=== PATIENT | male | born 1970 | race Caucasian/White ===

== ENCOUNTER → 2016-11-04 | Outpatient (CLI) | payer BC ==
--- NOTE | 2016-11-04 15:46 | REP ---
Cervical spine series: Eight views. History: Neck pain radiating to the right shoulder. No comparison studies. Findings: Lateral views done in flexion, extension and neutral position demonstrate limitation of flexion/extension range of motion. No subluxation or instability is seen. There is reversal of the normal cervical lordosis. There are degenerative disc changes noted anteriorly at the narrowed C5-6 disc level. Prevertebral soft tissues are not widened. Disc spaces are otherwise preserved. Vertebral body heights are preserved. No malalignment is seen. Oblique images demonstrate intact neural foramina bilaterally at each cervical level and normally aligned facets. AP and open mouth odontoid views show no additional abnormality. Impression: Reversal of the normal cervical lordosis. Degenerative disc changes at C5-6. Signed by Eusebio Dorado MD 11/04/2016 05:00 P
== END ==
LOC: M WUC 14:49
PROVIDERS: ATTEND Nurse Practitioner Family
DX: M50.90 Cervical disc disorder, unspecified, unspecified cervical region (principal)

== ENCOUNTER → 2019-09-11 | Outpatient (CLI) | payer BC ==
[2019-09-11 17:58] LABS: ALBUMIN 3.8 GM/DL (3.2-5.2); ALT/SGPT 118 U/L (12-78); BILIRUBIN,TOTAL 0.7 MG/DL (0.2-1.0); BLOOD UREA NITROGEN 7 MG/DL (7-18); CALCIUM LEVEL 9.5 MG/DL (8.5-10.1); CARBON DIOXIDE LEVEL 27 MEQ/L (21-32); CHLORIDE LEVEL 101 MEQ/L (98-107); CHOLESTEROL LEVEL 223 MG/DL (<200); CHOLESTEROL RISK RATIO 4.744 (<5); CREATININE FOR GFR 0.88 MG/DL (0.70-1.30); GLOMERULAR FILTRATION RATE > 60.0 (>60); GLUCOSE, FASTING 100 MG/DL (70-100); HDL CHOLESTEROL 47 MG/DL (>40); LDL CHOLESTEROL 146 MG/DL (<100); NON-HDL-C 176 MG/DL; POTASSIUM SERUM 4.4 MEQ/L (3.5-5.1); SODIUM LEVEL 136 MEQ/L (136-145); TOTAL PROTEIN 7.5 GM/DL (6.4-8.2); TRIGLYCERIDES LEVEL 150 MG/DL (<150)
== END ==
LOC: M WUC 12:12
PROVIDERS: ATTEND Nurse Practitioner Family
DX: G25.2 Other specified forms of tremor (principal); I10 Essential (primary) hypertension

== ENCOUNTER 2021-06-04 08:50 | Emergency (ER) | payer SELFPAY ==
[~2021-06-04] VITALS: Ht 180.3 cm; Wt 98.5 kg
--- NOTE | 2021-06-04 09:13 | REP ---
INDICATION: TRAUMA. COMPARISON: None. TECHNIQUE: AP and tangential scapular Y-views of the left shoulder are obtained. FINDINGS: There is an anterior inferior glenohumeral dislocation associated with a somewhat displaced fracture of the greater tuberosity of the proximal humerus. No glenoid fracture is apparent. The clavicle appears intact. The AC joint is normally aligned. There is soft tissue swelling. No rib fracture is seen. IMPRESSION: Anterior inferior glenohumeral fracture dislocation. There is an impaction fracture displacing the greater tuberosity. No glenoid fracture is seen. <Electronically signed by Kenneth Dorado > 06/04/21 [id number]
[2021-06-04] MEDS ORDERED: MORPHINE 4 MG/ML 1ML VIAL/SYRINGE (J2270) IV ONE (09:50)
[2021-06-04] MEDS ORDERED: ONDANSETRON 4MG/2ML VIAL IV ONE (09:50)
[2021-06-04] MEDS ORDERED: NS 1,000 ML IV SCH (09:55)
[2021-06-04] MEDS: propofoL 200 MG/20 ML VIAL IV.PROC PRN ×3 (10:24→10:27)
--- NOTE | 2021-06-04 10:53 | REP ---
INDICATION: post reduction. COMPARISON: Comparison is made with the earlier pre reduction radiographs. TECHNIQUE: A single AP portably obtained view of the left shoulder. FINDINGS: The left glenohumeral joint is reduced. The greater tuberosity fracture is improved in position on this AP view. AC joint is normally aligned as well. No scapular fracture is appreciated. IMPRESSION: Postreduction view shows good alignment of the glenohumeral articulation. Improved alignment of the greater tuberosity fracture. <Electronically signed by Kenneth Dorado > 06/04/21 1040
[2021-06-04] MEDS ORDERED: HYDR-3713 PO (11:43)
[2021-06-04 11:51] VITALS: BP 153/86
== END 2021-06-04 12:15 | disposition home or self-care (01) ==
LOC: M ED 08:50
DX: S42.252A Displaced fracture of greater tuberosity of left humerus, initial encounter for closed fracture (principal); S43.005A Unspecified dislocation of left shoulder joint, initial encounter; W17.89XA Other fall from one level to another, initial encounter; Y92.018 Other place in single-family (private) house as the place of occurrence of the external cause
CPT/HCPCS: 23650; 73020; 73030; 93041; 94760; 96374; 96375; 99285; J2270; J2405

== ENCOUNTER → 2021-06-17 | Outpatient (CLI) | payer BC, SELFPAY ==
[~2021-06-17] MED LIST: HYDR-3713 PO
--- NOTE | 2021-06-17 09:02 | REP ---
INDICATION: LT SHOULDER FX. COMPARISON: 06/04/2021 TECHNIQUE: Neutral, internal rotation, external rotation, and Y-view of the left shoulder FINDINGS: Nondisplaced fracture involving the greater tuberosity again noted. No significant callus formation or periosteal reaction identified. Acromioclavicular joint and glenoid as well as the surrounding soft tissues appear normal. IMPRESSION: Known nondisplaced greater tuberosity fracture of the proximal humeral head. <Electronically signed by Chad Lennon > 06/17/21 [id number]
== END ==
LOC: M SOG 08:23
PROVIDERS: ATTEND Orthopaedic Surgery
DX: S42.252A Displaced fracture of greater tuberosity of left humerus, initial encounter for closed fracture (principal); X58.XXXA Exposure to other specified factors, initial encounter; Y92.89 Other specified places as the place of occurrence of the external cause

== ENCOUNTER → 2021-07-01 | Outpatient (CLI) | payer BC ==
--- NOTE | 2021-07-01 11:21 | REP ---
INDICATION: LT SHOULDER FX. COMPARISON: 06/17/2021. TECHNIQUE: Four views left shoulder. FINDINGS: Nondisplaced fracture of the greater tuberosity of the proximal left humerus is again noted unchanged. IMPRESSION: Stable fracture greater tuberosity proximal left humerus. <Electronically signed by Kirk Hunter > 07/01/21 1110
== END ==
LOC: M SOG 08:25
PROVIDERS: ATTEND Orthopaedic Surgery
DX: S42.252 Displaced fracture of greater tuberosity of left humerus (principal); Y92.9 Unspecified place or not applicable; Y93.9 Activity, unspecified

== ENCOUNTER → 2021-07-16 | Outpatient (CLI) | payer BC ==
--- NOTE | 2021-07-16 09:18 | REP ---
INDICATION: LT HUMERUS FX. COMPARISON: 07/01/2021 TECHNIQUE: Two views FINDINGS: The previously described proximal humeral fracture is unchanged. The glenohumeral relationship is again seen to be maintained. IMPRESSION: No significant change <Electronically signed by Marcos Sanon > 07/16/21 0914
== END ==
LOC: M SOG 08:30
PROVIDERS: ATTEND Orthopaedic Surgery
DX: S42.255D Nondisplaced fracture of greater tuberosity of left humerus, subsequent encounter for fracture with routine healing (principal); Y92.9 Unspecified place or not applicable; Y93.9 Activity, unspecified; Y99.9 Unspecified external cause status

== ENCOUNTER → 2021-08-31 | Outpatient (CLI) | payer BC | LOC: M SOG 08:46 | PROVIDERS: ATTEND Orthopaedic Surgery | DX: S42.455D Nondisplaced fracture of lateral condyle of left humerus, subsequent encounter for fracture with routine healing (principal); Y92.9 Unspecified place or not applicable; Y93.9 Activity, unspecified; Y99.9 Unspecified external cause status ==

== ENCOUNTER → 2023-10-31 | Outpatient (REF) | payer BC ==
[2023-10-31 18:28] LABS: BASO # 0.1 10^3/uL (0.0-0.2); EOS # 0.1 10^3/uL (0.0-0.5); EOS % 1.6 % (0.0-3.0); HEMATOCRIT 53.3 % (42.0-52.0); LYMPH # 2.2 10^3/uL (1.5-5.0); MEAN CORPUSCULAR HEMOGLOBIN 34.8 pg (27.0-33.0); MEAN CORPUSCULAR HGB CONC 33.8 g/dl (32.0-36.5); MEAN CORPUSCULAR VOLUME 103.1 fl (80.0-96.0); MONO # 0.7 10^3/uL (0.0-0.8); MONO % 8.9 % (2.0-8.0); PLATELET COUNT, AUTOMATED 156 10^3/uL (150-450); RED BLOOD COUNT 5.17 10^6/uL (4.30-6.10); WHITE BLOOD COUNT 8.2 10^3/uL (4.0-10.0)
[2023-10-31 18:39] LABS: THYROID STIMULATING HORMONE 1.691 uIU/ML (0.55-4.78)
[2023-10-31 18:40] LABS: ALBUMIN 3.6 G/DL (3.2-5.2); ALKALINE PHOSPHATASE 94 U/L (46-116); ALT/SGPT 66 U/L (7.0-40); AST/SGOT 44 U/L (<34); BILIRUBIN,TOTAL 0.9 MG/DL (0.3-1.2); BLOOD UREA NITROGEN 6 MG/DL (9-23); CALCIUM LEVEL 9.5 MG/DL (8.5-10.1); CARBON DIOXIDE LEVEL 32 MMOL/L (20-31); CHLORIDE LEVEL 104 MMOL/L (98-107); CHOLESTEROL LEVEL 198 MG/DL (<200); CHOLESTEROL RISK RATIO 4.43 (<5); CREATININE FOR GFR 0.72 MG/DL (0.70-1.30); FREE T4 0.99 NG/DL (0.89-1.76); GLOMERULAR FILTRATION RATE > 60.0 (>56); GLUCOSE, FASTING 95 MG/DL (60-100); HDL CHOLESTEROL 44.6 MG/DL (>40); LDL CHOLESTEROL 135.2 MG/DL (<100); MAGNESIUM LEVEL 2.2 MG/DL (1.8-2.4); NON-HDL-C 153.4 MG/DL; POTASSIUM SERUM 4.7 MMOL/L (3.5-5.1); SODIUM LEVEL 134 MMOL/L (136-145); TOTAL PROTEIN 7.3 G/DL (5.7-8.2); TRIGLYCERIDES LEVEL 91 MG/DL (<150)
[2023-10-31 19:14] LABS: HEMOGLOBIN A1c 5.6 % (4.0-6.0)
== END ==
LOC: M SFHCCLAY 10:03
PROVIDERS: ATTEND Nurse Practitioner Family
DX: G25.0 Essential tremor (principal); R06.83 Snoring; Z13.220 Encounter for screening for lipoid disorders; R03.0 Elevated blood-pressure reading, without diagnosis of hypertension; R60.0 Localized edema; R00.2 Palpitations

== ENCOUNTER → 2023-11-30 | Outpatient (REF) | payer BC ==
[2023-11-30 11:32] LABS: BASO # 0.1 10^3/uL (0.0-0.2); BASO % 0.8 % (0.0-1.0); EOS # 0.2 10^3/uL (0.0-0.5); EOS % 2.2 % (0.0-3.0); HEMATOCRIT 50.5 % (42.0-52.0); HEMOGLOBIN 17.7 g/dl (13.5-17.5); LYMPH # 1.9 10^3/uL (1.5-5.0); LYMPH % 24.2 % (24.0-44.0); MEAN CORPUSCULAR HEMOGLOBIN 35.7 pg (27.0-33.0); MEAN CORPUSCULAR VOLUME 101.8 fl (80.0-96.0); MONO # 0.6 10^3/uL (0.0-0.8); MONO % 7.3 % (2.0-8.0); NEUTROPHILS % 64.9 % (36.0-66.0); PLATELET COUNT, AUTOMATED 145 10^3/uL (150-450); RED BLOOD COUNT 4.96 10^6/uL (4.30-6.10); WHITE BLOOD COUNT 7.8 10^3/uL (4.0-10.0)
[2023-11-30 12:15] LABS: ALBUMIN 3.5 G/DL (3.2-5.2); ALKALINE PHOSPHATASE 94 U/L (46-116); ALT/SGPT 53 U/L (7.0-40); AST/SGOT 42 U/L (<34); BILIRUBIN,TOTAL 0.6 MG/DL (0.3-1.2); BLOOD UREA NITROGEN 9 MG/DL (9-23); CALCIUM LEVEL 8.7 MG/DL (8.5-10.1); CARBON DIOXIDE LEVEL 25 MMOL/L (20-31); CHLORIDE LEVEL 102 MMOL/L (98-107); CHOLESTEROL LEVEL 183 MG/DL (<200); CHOLESTEROL RISK RATIO 4.91 (<5); GLOMERULAR FILTRATION RATE > 60.0 (>56); GLUCOSE, FASTING 111 MG/DL (60-100); HDL CHOLESTEROL 37.2 MG/DL (>40); LDL CHOLESTEROL 100.2 MG/DL (<100); NON-HDL-C 145.8 MG/DL; POTASSIUM SERUM 4.9 MMOL/L (3.5-5.1); SODIUM LEVEL 133 MMOL/L (136-145); TOTAL PROTEIN 6.8 G/DL (5.7-8.2); TRIGLYCERIDES LEVEL 228 MG/DL (<150)
== END ==
LOC: M SFHCCLAY 08:05
PROVIDERS: ATTEND Nurse Practitioner Family
DX: D75.1 Secondary polycythemia (principal); R74.8 Abnormal levels of other serum enzymes; E78.5 Hyperlipidemia, unspecified; I10 Essential (primary) hypertension

== ENCOUNTER → 2023-12-28 | Outpatient (CLI) | payer BC | LOC: M CARPUL 08:52 | PROVIDERS: ATTEND Nurse Practitioner Family | DX: I10 Essential (primary) hypertension (principal) ==

== ENCOUNTER 2024-01-20 09:37 | Day surgery (SDC) | payer BC ==
[~2024-01-20] VITALS: Ht 180.3 cm; Wt 102.6 kg
[~2024-01-20 09:37] MED LIST changes: +LOSA50TA28 PO
[2024-01-20] MEDS: NS 1,000 ML IV ONE (10:43)
[2024-01-20] MEDS ORDERED: fentaNYL 100 MCG/2 ML INJECTION As Ordered ONE (11:17)
[2024-01-20] MEDS ORDERED: propofoL 200 MG/20 ML VIAL As Ordered ONE (11:18)
[2024-01-20] MEDS ORDERED: LIDOCAINE 2% 100MG/5ML SDV (FOR ANES.) As Ordered ONE (11:18)
[2024-01-20 11:58] VITALS: TEMP 98.2
[2024-01-20 12:20] VITALS: BP 131/66; O2SAT 95
== END 2024-01-20 12:25 | disposition home or self-care (01) ==
LOC: M OPP 09:37
PROVIDERS: ATTEND Surgery
DX: Z12.11 Encounter for screening for malignant neoplasm of colon (principal); Z12.12 Encounter for screening for malignant neoplasm of rectum; K63.5 Polyp of colon; K64.0 First degree hemorrhoids; I10 Essential (primary) hypertension; Z79.899 Other long term (current) drug therapy; F17.210 Nicotine dependence, cigarettes, uncomplicated
CPT/HCPCS: 45378; 88305; J3010

== ENCOUNTER → 2024-06-27 | Outpatient (REF) | payer BC ==
[2024-06-27 12:23] LABS: BASO # 0.1 10^3/uL (0.0-0.2); BASO % 0.8 % (0.0-1.0); EOS # 0.2 10^3/uL (0.0-0.5); EOS % 2.3 % (0.0-3.0); HEMATOCRIT 41.9 % (42.0-52.0); HEMOGLOBIN 14.9 g/dl (13.5-17.5); LYMPH % 20.5 % (24.0-44.0); MEAN CORPUSCULAR HEMOGLOBIN 36.2 pg (27.0-33.0); MEAN CORPUSCULAR HGB CONC 35.6 g/dl (32.0-36.5); MEAN CORPUSCULAR VOLUME 101.7 fl (80.0-96.0); MONO # 0.9 10^3/uL (0.0-0.8); MONO % 9.7 % (2.0-8.0); NEUTROPHILS # 6.3 10^3/uL (1.5-8.5); NEUTROPHILS % 65.5 % (36.0-66.0); PLATELET COUNT, AUTOMATED 159 10^3/uL (150-450); RED BLOOD COUNT 4.12 10^6/uL (4.30-6.10); WHITE BLOOD COUNT 9.6 10^3/uL (4.0-10.0)
[2024-06-27 12:39] LABS: HEMOGLOBIN A1c 5.8 % (4.0-6.0)
[2024-06-27 12:43] LABS: ALBUMIN 3.3 G/DL (3.2-5.2); ALKALINE PHOSPHATASE 87 U/L (46-116); ALT/SGPT 42 U/L (7.0-40); AST/SGOT 34 U/L (<34); BILIRUBIN,TOTAL 0.6 MG/DL (0.3-1.2); BLOOD UREA NITROGEN 9 MG/DL (9-23); CALCIUM LEVEL 10.4 MG/DL (8.5-10.1); CARBON DIOXIDE LEVEL 30 MMOL/L (20-31); CHLORIDE LEVEL 96 MMOL/L (98-107); CHOLESTEROL LEVEL 185 MG/DL (<200); CHOLESTEROL RISK RATIO 4.98 (<5); CREATININE FOR GFR 0.78 MG/DL (0.70-1.30); FREE T4 1.23 NG/DL (0.89-1.76); GLOMERULAR FILTRATION RATE > 60.0 (>56); GLUCOSE, FASTING 122 MG/DL (60-100); HDL CHOLESTEROL 37.1 MG/DL (>40); LDL CHOLESTEROL 115.5 MG/DL (<100); NON-HDL-C 147.9 MG/DL; POTASSIUM SERUM 3.8 MMOL/L (3.5-5.1); SODIUM LEVEL 130 MMOL/L (136-145); THYROID STIMULATING HORMONE 2.389 uIU/ML (0.55-4.78); TOTAL PROTEIN 7.1 G/DL (5.7-8.2); TRIGLYCERIDES LEVEL 162 MG/DL (<150)
== END ==
LOC: M SFHCCLAY 08:08
PROVIDERS: ATTEND Nurse Practitioner Family
DX: I10 Essential (primary) hypertension (principal); G47.30 Sleep apnea, unspecified; G25.0 Essential tremor; E78.5 Hyperlipidemia, unspecified; D22.9 Melanocytic nevi, unspecified

== ENCOUNTER → 2024-07-04 | Outpatient (CLI) | payer BC | LOC: M SLEEP 20:00 | PROVIDERS: ATTEND Physician Assistant | DX: G47.33 Obstructive sleep apnea (adult) (pediatric) (principal); R40.0 Somnolence ==

== ENCOUNTER → 2024-08-27 | Outpatient (REF) | payer BC ==
[2024-08-27 11:25] LABS: HEMOGLOBIN 14.8 g/dl (13.5-17.5); MEAN CORPUSCULAR HEMOGLOBIN 36.2 pg (27.0-33.0); MEAN CORPUSCULAR HGB CONC 34.4 g/dl (32.0-36.5); MEAN CORPUSCULAR VOLUME 105.1 fl (80.0-96.0); PLATELET COUNT, AUTOMATED 160 10^3/uL (150-450); RED BLOOD COUNT 4.09 10^6/uL (4.30-6.10); WHITE BLOOD COUNT 7.3 10^3/uL (4.0-10.0)
[2024-08-27 11:26] LABS: TOTAL IRON BINDING CAPACITY 303 UG/DL (250-425)
[2024-08-27 11:28] LABS: ALBUMIN 3.1 G/DL (3.2-5.2); ALKALINE PHOSPHATASE 83 U/L (40-129); ALT/SGPT 64 U/L (7.0-40); AST/SGOT 55 U/L (<34); BILIRUBIN,TOTAL 0.5 MG/DL (0.3-1.2); BLOOD UREA NITROGEN 8 MG/DL (9-23); CALCIUM LEVEL 9.5 MG/DL (8.5-10.1); CARBON DIOXIDE LEVEL 26 MMOL/L (20-31); CHLORIDE LEVEL 102 MMOL/L (98-107); GLOMERULAR FILTRATION RATE > 60.0 (>56); GLUCOSE, FASTING 143 MG/DL (60-100); POTASSIUM SERUM 4.6 MMOL/L (3.5-5.1); SODIUM LEVEL 133 MMOL/L (136-145)
[2024-08-27 11:29] LABS: IRON (FE) 177 UG/DL (65-175); PERCENT SATURATION 58.4 % (19.7-50.0)
[2024-08-27 11:30] LABS: FERRITIN 591.5 NG/ML (10.5-307.3)
== END ==
LOC: M SFHCCLAY 08:58
PROVIDERS: ATTEND Nurse Practitioner Family
DX: I10 Essential (primary) hypertension (principal); G47.30 Sleep apnea, unspecified; G25.0 Essential tremor; E78.5 Hyperlipidemia, unspecified; D22.9 Melanocytic nevi, unspecified; R60.0 Localized edema

== ENCOUNTER → 2025-04-16 | Outpatient (REF) | payer BC ==
[~2025-04-16] MED LIST changes: +PROP20TA72; +SPIR-10
[2025-04-16 14:27] LABS: ESTIMATED AVERAGE GLUCOSE 120.0 MG/DL (60-110)
[2025-04-16 14:45] LABS: ALT/SGPT 47 U/L (7.0-40); AST/SGOT 44 U/L (<34); CALCIUM LEVEL 9.1 MG/DL (8.5-10.1); CARBON DIOXIDE LEVEL 27 MMOL/L (20-31); CHLORIDE LEVEL 96 MMOL/L (98-107); CHOLESTEROL LEVEL 189 MG/DL (<200); CHOLESTEROL RISK RATIO 5.41 (<5); CREATININE FOR GFR 0.72 MG/DL (0.70-1.30); GLOMERULAR FILTRATION RATE > 90.0 (>56); LDL CHOLESTEROL 127.7 MG/DL (<100); NON-HDL-C 154.1 MG/DL; POTASSIUM SERUM 4.6 MMOL/L (3.5-5.1); PSA SCREENING 0.32 NG/ML (< 4.00); SODIUM LEVEL 132 MMOL/L (136-145); TRIGLYCERIDES LEVEL 132 MG/DL (<150)
== END ==
LOC: M SFHCCLAY 08:33
PROVIDERS: ATTEND Nurse Practitioner Family
DX: I10 Essential (primary) hypertension (principal); G47.30 Sleep apnea, unspecified; G25.0 Essential tremor; E78.5 Hyperlipidemia, unspecified; R60.0 Localized edema; Z12.5 Encounter for screening for malignant neoplasm of prostate
CPT/HCPCS: 80053; 80061; 83036; G0103